=== PATIENT | male | born 1950 | race Caucasian/White ===

== ENCOUNTER → 2022-07-19 09:02 | Outpatient (CLI) | payer BC, MEDICARE, SELFPAY ==
--- NOTE | 2022-07-19 09:12 | XR_ITS ---
FINAL REPORT CLINICAL HISTORY: foot pain COMPARISON: March 24, 2019 FINDINGS: RIGHT FOOT Three views of the right foot demonstrate no acute fracture or dislocation. There are mild degenerative changes at the 1st MTP joint. There is a small posterior calcaneal spur. There are small calcifications in the region of the distal Achilles tendon. IMPRESSION: Degenerative changes with no acute bony abnormality, stable. Reviewed, Interpreted and Dictated by Thomas Mahan III, MD Transcribed by Thea Lezama Authenticated and [facility]
--- NOTE | 2022-07-19 09:12 | XR_ITS ---
FINAL REPORT CLINICAL HISTORY: foot pain FINDINGS: LEFT FOOT Three views of the left foot demonstrate no acute fracture or dislocation. There are mild degenerative changes at the 1st MTP joint. There is a posterior calcaneal spur. There are small calcifications in the region of the distal Achilles tendon. IMPRESSION: Degenerative changes with no acute bony abnormality. Reviewed, Interpreted and Dictated by Thomas Mahan III, MD Transcribed by Thea Lezama Authenticated and . [facility]
== END ==
PROVIDERS: PCP Family Medicine; Visit Provider Podiatrist
DX: M79.671 Pain in right foot; M77.31 Calcaneal spur, right foot
CPT/HCPCS: 73630

== ENCOUNTER → 2022-10-13 23:19 | Outpatient (CLI) | payer BC, MEDICARE, SELFPAY ==
[2022-10-13 18:43] LABS: Basophils % 0.7 % (0.1-2.0); Eosinophils # 0.1 K/mm3 (0.0-0.4); Eosinophils % 1.8 % (0.1-12.0); Hematocrit 50.7 % (42.0-52.0); Hemoglobin 16.1 g/dL (14.1-18.0); Lymphocytes # 2.1 K/mm3 (0.7-4.5); Lymphocytes % 32.5 % (10-50); Mean Corpuscular HGB Conc 31.8 g/dL (31.8-35.4); Mean Corpuscular Hemoglobin 30.8 pg (27.0-31.2); Mean Platelet Volume 9.2 fl (7.4-10.4); Monocytes # 0.4 K/mm3 (0.1-1.0); Monocytes % 5.6 % (1.7-9.3); Neutrophils # 3.9 K/mm3 (1.8-7.8); Neutrophils % 59.5 % (37.0-80.0); Platelet Count 301 K/mm3 (142-424); Red Blood Count 5.23 M/mm3 (4.60-6.20); Red Cell Distribution Width 13.7 % (11.5-17.5); White Blood Count 6.6 K/mm3 (4.8-10.8)
[2022-10-13 18:54] LABS: Alanine Aminotransferase 26 U/L (12-78); Albumin Level 4.5 g/dl (3.5-5.0); Albumin/Globulin Ratio 1.7 (1.1-1.8); Alkaline Phosphatase 63 U/L (38-126); Anion Gap 13.2 mEq/L (5-15); Aspartate Amino Transferase 32 U/L (17-59); Bilirubin,Total 0.8 mg/dl (0.2-1.3); Blood Urea Nitrogen 23 mg/dl (9-20); Carbon Dioxide 28 mmol/L (22.0-30.0); Chloride 99 mmol/L (98-107); Chol/HDL Ratio 2.9 (1-3.5); Cholesterol 123 mg/dl (140-200); Estimated Glomerular Filt Rate 66 ml/min (>60); GFR (African American) 80 ML/MIN (>60); Globulin 2.7 g/dL (1.3-3.2); Glucose 95 mg/dl (74-100); HDL Cholesterol 42 mg/dl (40-60); Potassium 4.2 mmoL/L (3.5-5.1); Sodium 136 mmol/L (136-145); Total Protein,Serum 7.2 g/dl (6.3-8.2); Triglycerides 117 mg/dl (30-150); VLDL Cholesterol 23 mg/dL (0-40)
[2022-10-13 19:05] LABS: Direct LDL Cholesterol 53.32 mg/dL (100-129)
[2022-10-13 19:25] LABS: Thyroid Stimulating Hormone 1.84 uIU/mL (0.465-4.68)
[2022-10-13 20:27] LABS: Microalbumin/Creatinine Ratio 5.7
[2022-10-13 20:32] LABS: Creatinine,Urine Random 161 mg/dL (Not Estab.)
[2022-10-15 10:11] LABS: Testosterone,Total 79 ng/dL (264-916)
== END ==
PROVIDERS: PCP Family Medicine; Visit Provider Family Medicine
DX: E34.9 Endocrine disorder, unspecified (principal); E78.5 Hyperlipidemia, unspecified; I10 Essential (primary) hypertension
CPT/HCPCS: 80053; 80061; 82043; 82570; 84403; 84443; 85025

== ENCOUNTER 2024-09-27 10:55 | Outpatient (CLI) | payer BC, MEDICARE, SELFPAY ==
--- NOTE | 2024-09-27 11:04 | CT_ITS ---
FINAL REPORT TECHNIQUE: Noncontrast CT exam of the abdomen and pelvis. This study was performed with techniques to keep radiation doses as low as reasonably achievable (ALARA). Individualized dose reduction techniques using automated exposure control or adjustment of mA and/or kV according to the patient's size were employed. CLINICAL HISTORY: RIGHT FLANK PAIN......STONE PRTOCOL COMPARISON: None FINDINGS: CT ABDOMEN PELVIS WITHOUT CONTRAST: Abdomen: Lung bases are clear. Liver, spleen, pancreas and adrenal glands have a normal CT appearance in their limited unenhanced state. The gallbladder has been surgically resected. There is a 4 mm right proximal ureteral stone, without evidence of significant hydronephrosis of the right kidney. This is best seen on coronal image #44. There are multiple left renal masses, which likely represent renal cysts. Pelvis: No distal ureteral stones are seen. Bladder and prostate are unremarkable. No fluid collection or adenopathy is seen. There is a presumed appendectomy. IMPRESSION: 4 mm right proximal ureteral stone, without significant obstruction. Reviewed, Interpreted and Dictated by Angela Ramirez MD Transcribed by Eliza Amador Authenticated and [facility]
== END 2024-09-27 23:59 | disposition home or self-care (01) ==
LOC: RAD 10:57
PROVIDERS: PCP Family Medicine; Visit Provider Physician Assistant
DX: R31.9 Hematuria, unspecified (principal); R10.9 Unspecified abdominal pain; Z87.442 Personal history of urinary calculi
CPT/HCPCS: 74176